=== PATIENT | female | born 1990 | race Asian ===

== ENCOUNTER 2023-04-23 08:50 | Outpatient (CLI) | payer BC | END 2023-04-23 08:51 | disposition home or self-care (01) | LOC: CSHRAD 08:50 | PROVIDERS: ATTEND Internal Medicine Gastroenterology | DX: R14.3 Flatulence (principal); R10.9 Unspecified abdominal pain; F90.9 Attention-deficit hyperactivity disorder, unspecified type; K59.00 Constipation, unspecified | CPT/HCPCS: 74019; 74246 ==